=== PATIENT | female | born 1955 | race Caucasian/White ===

== ENCOUNTER 2017-08-17 07:56 | Emergency (ER) | payer BC ==
[~2017-08-17] VITALS: Ht 167.6 cm; Wt 77.0 kg
[~2017-08-17 07:56] MED LIST: METAXALONE800 MG PO; RELPAX PO; TOPAMAX50 MG PO; TRAZODONE HCL50 MG PO; ZITHROMAX250 MG PO
[2017-08-17 08:29] LABS: HEMATOCRIT 46.2 % (36.0-46.0); HEMOGLOBIN 15.8 G/DL (11.9-15.5); MCH 32.2 PG (29.0-34.0); MCHC 34.2 G/DL (30.0-36.0); MCV 94.1 FL (83-99); PLATELET COUNT 250 K/uL (156-360); RED BLOOD COUNT 4.91 M/uL (3.80-5.20); WHITE BLOOD COUNT 7.4 K/uL (4.1-10.2)
[2017-08-17 08:39] LABS: CHLORIDE 107 mEq/L (99-109); POTASSIUM 3.5 mEq/L (3.7-5.4); SODIUM 144 mEq/L (136-147)
[2017-08-17 08:41] LABS: GLUCOSE 89 mg/dL (70-99)
[2017-08-17 08:45] LABS: CREATININE 1.1 mg/dL (0.6-1.3); GFR ESTIMATE (CALCULATED) 53 mL/min/
[2017-08-17 08:46] LABS: UREA NITROGEN (BUN) 18 mg/dL (9-23)
[2017-08-17] MEDS ORDERED: PREDNISONE50 MG PO (09:40)
[2017-08-17] MEDS ORDERED: VENTOLIN HFA18 GM IH (09:40)
[2017-08-17 09:50] VITALS: BP 102/74
== END 2017-08-17 09:57 | disposition home or self-care (01) ==
LOC: EME 07:56
DX: J20.9 Acute bronchitis, unspecified (principal); Z90.49 Acquired absence of other specified parts of digestive tract
CPT/HCPCS: 71046; 80048; 85027; 94640; 99281; 99284